=== PATIENT | female | born 1980 | race Caucasian/White ===

== ENCOUNTER 2018-08-19 20:12 | Emergency (ER) | payer BC ==
[~2018-08-19] VITALS: Ht 154.9 cm; Wt 124.7 kg
[2018-08-19] MEDS ORDERED: KETOROLAC TROMETHAMINE 15 MG/ML VIAL ONE (20:51)
[2018-08-19] MEDS ORDERED: ONDANSETRON HCL/PF 4 MG/2 ML VIAL ONE (20:51)
[2018-08-19] MEDS ORDERED: KETOROLAC TROMETHAMINE INJ 30 MG/ML VIAL IV ONE (21:00)
[2018-08-19] MEDS ORDERED: IV NS 0.9% 1,000 ML BAG IV ONE (21:00)
[2018-08-19] MEDS ORDERED: ONDANSETRON HCL/PF 4 MG/2 ML VIAL IVP ONE (21:00)
[2018-08-19 21:06] LABS: BASOPHILS % (AUTO) 0.1 % (0.0-2.0); EOSINOPHILS % (AUTO) 0.8 % (0.0-6.0); HEMATOCRIT 38 % (33-45); HEMOGLOBIN 12.6 g/dL (11.5-14.8); LYMPHOCYTES # (AUTO) 2.2 /CMM (0.8-4.8); LYMPHOCYTES % (AUTO) 23.9 % (20.0-44.0); MEAN CORPUSCULAR HGB CONC 33 g/dl (31.0-36.0); MEAN CORPUSCULAR VOLUME 84 fL (82-100); MONOCYTES # (AUTO) 0.5 /CMM (0.1-1.30); MONOCYTES % (AUTO) 5.7 % (2.0-12.0); NEUTROPHILS # (AUTO) 6.4 /CMM (1.8-8.9); NEUTROPHILS % (AUTO) 69.5 % (43.0-81.0); PLATELET COUNT (AUTO) 294 /CMM (150-450); RED BLOOD CELL COUNT(AUTO) 4.56 MIL/uL (4.0-5.2); WHITE BLOOD COUNT (AUTO) 9.2 K/uL (4.3-11.0)
[2018-08-19 21:18] LABS: ALBUMIN 2.9 g/dL (3.4-5.0); BILIRUBIN,DIRECT 0.1 mg/dL (0.0-0.2); BILIRUBIN,TOTAL 0.4 mg/dL (0.2-1.0); CALCIUM, SERUM 8.7 mg/dL (8.5-10.1); TOTAL PROTEIN, SERUM 5.9 g/dL (6.4-8.2)
[2018-08-19 21:23] LABS: APPEARANCE,URINE Slightly Cloudy (CLEAR); BILIRUBIN,URINE Negative (NEGATIVE); BLOOD, URINE Negative Ery/uL (NEGATIVE); COLOR,URINE Yellow (YELLOW); KETONES,URINE Trace (NEGATIVE); LEUKOCYTE ESTERASE ,URINE Trace (NEGATIVE); NITRITE, URINE Positive (NEGATIVE); PROTEIN,URINE Negative (NEGATIVE); UGLUCOSE Negative (NEGATIVE)
--- NOTE | 2018-08-19 21:36 | NUR ---
BIBSELF C/C RIGHT BACK PAIN CAUSING SOB SINCE AM. PT AAOX4, VSS. DENIES CP, SOB, DIZZINESS @ THIS TIME. PT SEEN & EVAL'D BY DR. TREVIZO. MEDICATED FOR PAIN, PT TRACI WELL. WILL CONT TO MONITOR. PT TO CT VIA [facility].
[2018-08-19 21:37] LABS: BACTERIA,URINE 3+ /HPF (None Seen); RBC,URINE NONE SEEN /HPF (0-2); SQUAMOUS EPITHELIAL CELL,UR Few /HPF (None Seen)
[2018-08-19] MEDS ORDERED: CEFTRIAXONE 1 G in IV D5W 50 ML IV ONE (22:00)
[2018-08-19] MEDS ORDERED: CEFTRIAXONE 1GM BAG (ER ONLY) 50 ML IV ONE (22:02)
--- NOTE | 2018-08-19 22:38 | NUR ---
Patient discharged to home in stable condition. Written and verbal after care instructions given. Patient verbalizes understanding of instruction. IV removed. Catheter intact and site benign. Pressure and 4x4 applied to site. No bleeding noted.
[2018-08-19 22:39] VITALS: BP 132/84
== END 2018-08-19 22:39 | disposition home or self-care (01) ==
LOC: ER 20:18
DX: N39.0 Urinary tract infection, site not specified (principal); R91.1 Solitary pulmonary nodule; Z90.710 Acquired absence of both cervix and uterus; Z88.1 Allergy status to other antibiotic agents
CPT/HCPCS: 36415; 80048-TC; 80076-TC; 81000-TC; 83690-TC; 84703-TC; 85025-TC; 87086-TC; J0696; J1885; J2405; J7030; J7060

== ENCOUNTER 2018-08-27 16:21 | Emergency (ER) | payer BC ==
[~2018-08-27] VITALS: Ht 154.9 cm; Wt 122.5 kg
--- NOTE | 2018-08-27 16:35 | NUR ---
PT BIB SELF C/O LEFT FLANK PAIN X 2 DAYS, PT IS AAOX4, NOT IN RESPIRATORY DISTRESS, V/S STABLE, KEPT RESTED AND COMFORTABLE.
--- NOTE | 2018-08-27 16:35 | NUR ---
URINE SPECIMEN COLLECTEED AND SENT TO LAB.
--- NOTE | 2018-08-27 16:50 | NUR ---
SEEN AND EXAMINED BY AHSAN LOPEZ
[2018-08-27] MEDS ORDERED: HYDROCODONE/APAP 5/325MG 1 EACH TABLET PO ONE (17:00)
[2018-08-27] MEDS ORDERED: KETOROLAC TROMETHAMINE INJ 60 MG/2 ML VIAL IM ONE ×2 (17:00→17:07)
[2018-08-27 17:05] LABS: BASOPHILS % (AUTO) 0.3 % (0.0-2.0); EOSINOPHILS % (AUTO) 0.4 % (0.0-6.0); HEMATOCRIT 38 % (33-45); HEMOGLOBIN 12.8 g/dL (11.5-14.8); LYMPHOCYTES # (AUTO) 2.3 /CMM (0.8-4.8); LYMPHOCYTES % (AUTO) 25.4 % (20.0-44.0); MEAN CORPUSCULAR HGB CONC 33 g/dl (31.0-36.0); MEAN CORPUSCULAR VOLUME 83 fL (82-100); MONOCYTES # (AUTO) 0.5 /CMM (0.1-1.30); MONOCYTES % (AUTO) 5.1 % (2.0-12.0); NEUTROPHILS # (AUTO) 6.2 /CMM (1.8-8.9); NEUTROPHILS % (AUTO) 68.8 % (43.0-81.0); PLATELET COUNT (AUTO) 341 /CMM (150-450)
[2018-08-27] MEDS ORDERED: HYDROCODONE/APAP 5/325MG 1 EACH TABLET ONE (17:08)
--- NOTE | 2018-08-27 17:10 | NUR ---
TORADOL 60 MG AND NORCO 5-325 GIVEN ORDERED.
[2018-08-27 17:12] LABS: CALCIUM, SERUM 8.6 mg/dL (8.5-10.1); CREATININE 0.9 mg/dL (0.6-1.3); POTASSIUM 3.5 mmol/L (3.5-5.1)
[2018-08-27 17:17] LABS: APPEARANCE,URINE Clear (CLEAR); BILIRUBIN,URINE Negative (NEGATIVE); BLOOD, URINE Negative Ery/uL (NEGATIVE); COLOR,URINE Yellow (YELLOW); KETONES,URINE 40 (NEGATIVE); LEUKOCYTE ESTERASE ,URINE Negative (NEGATIVE); NITRITE, URINE Negative (NEGATIVE); PROTEIN,URINE Negative (NEGATIVE); UGLUCOSE Negative (NEGATIVE); UROBILINOGEN,URINE 0.2 EU/dL (0.2)
[2018-08-27 17:18] LABS: ALBUMIN 3.4 g/dL (3.4-5.0); BILIRUBIN,DIRECT 0.1 mg/dL (0.0-0.2); BILIRUBIN,TOTAL 0.7 mg/dL (0.2-1.0); TOTAL PROTEIN, SERUM 6.7 g/dL (6.4-8.2)
[2018-08-27 17:40] LABS: RBC,URINE 0-2 /HPF (0-2); WBC,URINE 0-2 /HPF (0-3)
[2018-08-27 17:41] LABS: BACTERIA,URINE None seen /HPF (None Seen); SQUAMOUS EPITHELIAL CELL,UR Few /HPF (None Seen)
[2018-08-27 17:54] VITALS: BP 123/97
--- NOTE | 2018-08-27 17:54 | NUR ---
Patient discharged to home in stable condition. Written and verbal after care instructions given. Patient verbalizes understanding of instruction.
--- NOTE | 2018-08-28 17:10 | NUR ---
Crispin brown in ED - 08/28/18 at 1748 by BHUPINDER TORADOL 60 MG AND NORCO 5-325 GIVEN ORDERED.
== END 2018-08-27 17:58 | disposition home or self-care (01) ==
LOC: ER 16:25
DX: R10.9 Unspecified abdominal pain (principal); Z90.710 Acquired absence of both cervix and uterus; Z88.1 Allergy status to other antibiotic agents; Z87.442 Personal history of urinary calculi
CPT/HCPCS: 36415; 80048; 80076; 81001; 83690; 84703; 85025; 96372; 99283; A4606; J1885; 81000-TC

== ENCOUNTER 2018-09-26 08:34 | Emergency (ER) | payer BC ==
[~2018-09-26] VITALS: Ht 154.9 cm; Wt 116.1 kg
[2018-09-26] MEDS ORDERED: IPRATROPIUM NEB FS 0.5 MG/2.5 ML AMPUL.NEB ONE (08:51)
[2018-09-26] MEDS ORDERED: ALBUTEROL FS 2.5 MG/3 ML VIAL.NEB ONE (08:51)
--- NOTE | 2018-09-26 08:51 | NUR ---
PT BROUGHT IN FROM HOME WITH C/C OF CONGESTION FLU SWAB DONE RT CALLED FOR BREATHING TREATMENT.
[2018-09-26] MEDS ORDERED: ACETAMINOPHEN ES 500 MG TABLET ONE (08:52)
[2018-09-26] MEDS ORDERED: IPRATROPIUM NEB FS 0.5 MG/2.5 ML AMPUL.NEB NEB ONE (09:00)
[2018-09-26] MEDS ORDERED: ALBUTEROL FS 2.5 MG/3 ML VIAL.NEB NEB ONE (09:00)
[2018-09-26] MEDS ORDERED: ACETAMINOPHEN ES 500 MG TABLET PO ONE (09:00)
[2018-09-26] MEDS ORDERED: OSELTAMIVIR PHOSPHATE 75 MG CAPSULE PO ONE (09:30)
[2018-09-26] MEDS ORDERED: OSELTAMIVIR PHOSPHATE 75 MG CAPSULE ONE (09:36)
--- NOTE | 2018-09-26 10:07 | NUR ---
PTION WILL FOLLOW UP WITH PCP. PT DISCHARGED TO HOME GIVEN ACI AND PRESCRI
[2018-09-26 10:08] VITALS: BP 117/71
== END 2018-09-26 10:08 | disposition home or self-care (01) ==
LOC: ER 08:40
DX: J10.1 Influenza due to other identified influenza virus with other respiratory manifestations (principal); M79.10 Myalgia, unspecified site; R00.0 Tachycardia, unspecified; Z87.442 Personal history of urinary calculi; Z87.440 Personal history of urinary (tract) infections; Z90.710 Acquired absence of both cervix and uterus; Z88.1 Allergy status to other antibiotic agents
CPT/HCPCS: 71045-TC; 87400

== ENCOUNTER 2018-10-30 19:57 | Emergency (ER) | payer BC ==
[~2018-10-30] VITALS: Ht 154.9 cm; Wt 117.0 kg
[2018-10-30 20:07] VITALS: BP 139/86
[2018-10-30] MEDS ORDERED: IBUPROFEN 400 MG TABLET ONE (21:46)
[2018-10-30] MEDS ORDERED: ACETAMINOPHEN ES 500 MG TABLET ONE (21:46)
[2018-10-30] MEDS ORDERED: ACETAMINOPHEN ES 500 MG TABLET PO ONE (22:00)
[2018-10-30] MEDS ORDERED: IBUPROFEN 400 MG TABLET PO ONE (22:00)
== END 2018-10-30 21:52 | disposition home or self-care (01) ==
LOC: ER 20:01
DX: J06.9 Acute upper respiratory infection, unspecified (principal); Z90.710 Acquired absence of both cervix and uterus; Z87.442 Personal history of urinary calculi; Z87.440 Personal history of urinary (tract) infections; Z88.8 Allergy status to other drugs, medicaments and biological substances; Z60.2 Problems related to living alone

== ENCOUNTER 2018-12-03 10:40 | Emergency (ER) | payer BC ==
[~2018-12-03] VITALS: Ht 162.6 cm; Wt 68.0 kg
--- NOTE | 2018-12-03 11:10 | NUR ---
PT PRESENTED TO THE ER WITH A C/O N/V NANNY BABYSITTER. PT AMBULATED TO ER 12 WITH A STEADY GAIT. VSS.
--- NOTE | 2018-12-03 11:20 | NUR ---
Patient discharged to home in stable condition. Written and verbal after care instructions given. Patient verbalizes understanding of instruction AND RX. PT AMBUALTED OUT WITH A STEADY GAIT. VSS.
[2018-12-03 11:30] VITALS: BP 134/87
== END 2018-12-03 11:31 | disposition home or self-care (01) ==
LOC: ER 10:43
DX: A08.4 Viral intestinal infection, unspecified (principal); Z87.442 Personal history of urinary calculi; Z90.710 Acquired absence of both cervix and uterus; Z88.1 Allergy status to other antibiotic agents; Z60.2 Problems related to living alone

== ENCOUNTER 2019-03-07 13:28 | Emergency (ER) | payer BC ==
[~2019-03-07] VITALS: Ht 165.1 cm; Wt 68.0 kg
[2019-03-07] MEDS ORDERED: KETOROLAC TROMETHAMINE INJ 60 MG/2 ML VIAL IM ONE ×2 (14:00→14:12)
[2019-03-07] MEDS ORDERED: CYCLOBENZAPRINE 10 MG TABLET PO ONE (14:00)
[2019-03-07] MEDS ORDERED: DEXAMETHASONE SOD PHOSPHATE 4 MG/ML VIAL IM ONE (14:00)
[2019-03-07] MEDS ORDERED: DEXAMETHASONE SOD PHOSPHATE 10 MG/ML VIAL ONE (14:12)
[2019-03-07] MEDS ORDERED: CYCLOBENZAPRINE 10 MG TABLET ONE (14:13)
[2019-03-07 14:43] VITALS: BP 136/74
--- NOTE | 2019-03-07 14:57 | NUR ---
for discharge Patient discharged to home in stable condition. Written and verbal after care instructions given. Patient verbalizes understanding of instruction.
== END 2019-03-07 14:57 | disposition home or self-care (01) ==
LOC: ER 13:35
DX: M54.5 Low back pain (principal); G89.29 Other chronic pain; Z87.442 Personal history of urinary calculi; Z90.710 Acquired absence of both cervix and uterus; Z88.1 Allergy status to other antibiotic agents; Z87.440 Personal history of urinary (tract) infections; Z60.2 Problems related to living alone
CPT/HCPCS: 96372 ×2; 99283; J1100; J1885

== ENCOUNTER 2019-03-19 09:17 | Emergency (ER) | payer BC | END 2019-03-19 10:04 | disposition home or self-care (01) | DX: H66.92 Otitis media, unspecified, left ear (principal); Z90.710 Acquired absence of both cervix and uterus; Z90.49 Acquired absence of other specified parts of digestive tract; Z87.442 Personal history of urinary calculi; Z87.440 Personal history of urinary (tract) infections; Z88.1 Allergy status to other antibiotic agents; Z60.2 Problems related to living alone ==

== ENCOUNTER 2019-04-19 09:45 | Emergency (ER) | payer BC ==
[~2019-04-19] VITALS: Ht 154.9 cm; Wt 117.0 kg
[2019-04-19 09:49] VITALS: BP 130/82
[2019-04-19] MEDS ORDERED: ACETAMINOPHEN ES 500 MG TABLET ONE (09:57)
[2019-04-19] MEDS ORDERED: ACETAMINOPHEN ES 500 MG TABLET PO ONE (10:00)
--- NOTE | 2019-04-19 10:05 | NUR ---
Patient discharged to home in stable condition. Written and verbal after care instructions given. Patient verbalizes understanding of instruction.
== END 2019-04-19 10:05 | disposition home or self-care (01) ==
LOC: ER 09:51
DX: R23.3 Spontaneous ecchymoses (principal); R21 Rash and other nonspecific skin eruption; Z87.440 Personal history of urinary (tract) infections; Z87.442 Personal history of urinary calculi; Z90.710 Acquired absence of both cervix and uterus; Z88.1 Allergy status to other antibiotic agents; Z60.2 Problems related to living alone

== ENCOUNTER 2019-05-31 14:02 | Emergency (ER) | payer BC ==
[~2019-05-31] VITALS: Ht 177.8 cm; Wt 113.4 kg
--- NOTE | 2019-05-31 14:17 | NUR ---
URINE SPECIMEN COLLECTED AND SENT TO LAB.
--- NOTE | 2019-05-31 14:21 | NUR ---
PT BIB SELF C/O LOWER ABDOMINAL PAIN AND DYSURIA FOR 3 WEEKS, PT IS AAOX4, NOT IN RESPIRATORY DISTRESS, HOOKED TO MONITOR, KEPT RESTED AND COMFORTABLE, WILL CONTINUE TO MONITOR.
--- NOTE | 2019-05-31 14:22 | NUR ---
AT BEDSIDE FOR EVAL.
--- NOTE | 2019-05-31 14:43 | NUR ---
PT IV LINE ESTABLISHED, BLOOD DRAWN AND SENT TO LAB.
[2019-05-31 14:44] LABS: APPEARANCE,URINE Clear (CLEAR); BILIRUBIN,URINE Negative (NEGATIVE); BLOOD, URINE Negative Ery/uL (NEGATIVE); COLOR,URINE Yellow (YELLOW); KETONES,URINE Negative (NEGATIVE); LEUKOCYTE ESTERASE ,URINE Negative (NEGATIVE); NITRITE, URINE Negative (NEGATIVE); PROTEIN,URINE Negative (NEGATIVE); UGLUCOSE Negative (NEGATIVE); UROBILINOGEN,URINE 0.2 EU/dL (0.2)
[2019-05-31] MEDS ORDERED: MORPHINE SULFATE INJ 2 MG/ML DISP.SYRIN ONE (14:44)
[2019-05-31] MEDS ORDERED: ONDANSETRON HCL/PF 4 MG/2 ML VIAL ONE (14:44)
[2019-05-31 14:47] LABS: BASOPHILS % (AUTO) 0.3 % (0.0-2.0); EOSINOPHILS % (AUTO) 1.2 % (0.0-6.0); HEMATOCRIT 37 % (33-45); HEMOGLOBIN 12.3 g/dL (11.5-14.8); LYMPHOCYTES % (AUTO) 24.7 % (20.0-44.0); MEAN CORPUSCULAR HGB CONC 34 g/dl (31.0-36.0); MEAN CORPUSCULAR VOLUME 82 fL (82-100); MONOCYTES # (AUTO) 0.4 /CMM (0.1-1.30); MONOCYTES % (AUTO) 5.1 % (2.0-12.0); NEUTROPHILS # (AUTO) 5.6 /CMM (1.8-8.9); NEUTROPHILS % (AUTO) 68.7 % (43.0-81.0); PLATELET COUNT (AUTO) 312 /CMM (150-450); RED BLOOD CELL COUNT(AUTO) 4.48 MIL/uL (4.0-5.2); WHITE BLOOD COUNT (AUTO) 8.2 K/uL (4.3-11.0)
[2019-05-31] MEDS ORDERED: MORPHINE SULFATE INJ 2 MG/ML DISP.SYRIN IV ONE (15:00)
[2019-05-31] MEDS ORDERED: ONDANSETRON HCL/PF 4 MG/2 ML VIAL IVP ONE (15:00)
[2019-05-31] MEDS ORDERED: IV NS 0.9% 1,000 ML BAG IV ONE (15:00)
[2019-05-31 15:03] LABS: ALBUMIN 3.4 g/dL (3.4-5.0); BILIRUBIN,DIRECT 0.1 mg/dL (0.0-0.2); BILIRUBIN,TOTAL 0.5 mg/dL (0.2-1.0); CREATININE 0.8 mg/dL (0.6-1.3); POTASSIUM 3.2 mmol/L (3.5-5.1); TOTAL PROTEIN, SERUM 6.8 g/dL (6.4-8.2)
[2019-05-31 15:12] LABS: CALCIUM, SERUM 8.7 mg/dL (8.5-10.1)
--- NOTE | 2019-05-31 16:16 | NUR ---
PT IS WHEELED TO CT SCAN VIA [facility].
[2019-05-31] MEDS ORDERED: IOHEXOL-300 100 ML VIAL IV ONE (17:14)
--- NOTE | 2019-05-31 17:40 | NUR ---
TECH AT BEDSIDE FOR US.
[2019-05-31] MEDS ORDERED: KETOROLAC TROMETHAMINE INJ 30 MG/ML VIAL ONE (18:14)
[2019-05-31] MEDS ORDERED: KETOROLAC TROMETHAMINE INJ 30 MG/ML VIAL IV ONE (18:30)
--- NOTE | 2019-05-31 18:51 | NUR ---
CALLED VASU JAMIL, LEFT VOICEMAIL.
--- NOTE | 2019-05-31 19:07 | NUR ---
REPORT GIVEN TO JHONY VALDEZ FOR KRISTINA.
--- NOTE | 2019-05-31 19:13 | NUR ---
DR. OCAMPO AT THE BED SIDE
--- NOTE | 2019-05-31 19:14 | NUR ---
CALL NICHELLE FOR UPDATES [phone]
[2019-05-31] MEDS ORDERED: POTASSIUM CHLORIDE 20 MEQ TAB.PRT.SR PO ONE ×2 (19:30→19:44)
[2019-05-31 19:48] VITALS: BP 117/77
--- NOTE | 2019-05-31 19:48 | NUR ---
IV removed. Catheter intact and site benign. Pressure and 4x4 applied to site. No bleeding noted.Patient discharged to home in stable condition. Rx and Written and verbal after care instructions given. Patient verbalizes understanding of instruction.
== END 2019-05-31 19:49 | disposition home or self-care (01) ==
LOC: ER 14:04
DX: R91.1 Solitary pulmonary nodule (principal); R19.09 Other intra-abdominal and pelvic swelling, mass and lump; N83.8 Other noninflammatory disorders of ovary, fallopian tube and broad ligament; E87.6 Hypokalemia; F10.10 Alcohol abuse, uncomplicated; E66.9 Obesity, unspecified; Y90.9 Presence of alcohol in blood, level not specified; Z68.35 Body mass index [BMI] 35.0-35.9, adult; Z90.49 Acquired absence of other specified parts of digestive tract; Z90.710 Acquired absence of both cervix and uterus; Z87.442 Personal history of urinary calculi; Z87.440 Personal history of urinary (tract) infections; Z88.1 Allergy status to other antibiotic agents; Z60.2 Problems related to living alone
CPT/HCPCS: 36415; 71260; 74176; 76856; 80048; 80076; 81001; 83690; 84703; 85025; 96374; 96375; 99284; J1885; J2270; J2405; J7030; Q9967; 81000-TC

== ENCOUNTER 2019-08-16 07:03 | Emergency (ER) | payer BC ==
[~2019-08-16] VITALS: Ht 154.9 cm; Wt 117.9 kg
--- NOTE | 2019-08-16 07:15 | NUR ---
c/o RLQ abd pain since last night 01/27 ps, -N/V, -diarrhea. Patient a/ox4, breathing even and unlabored, no sob noted, MD at bedside for eval.
--- NOTE | 2019-08-16 07:20 | NUR ---
IV line established on RAC g20, blood drawn, urine sample sent to lab.
[2019-08-16] MEDS ORDERED: ONDANSETRON HCL/PF 4 MG/2 ML VIAL ONE (07:29)
[2019-08-16] MEDS ORDERED: MORPHINE SULFATE INJ 4 MG/ML DISP.SYRIN ONE (07:29)
[2019-08-16] MEDS ORDERED: ONDANSETRON HCL/PF 4 MG/2 ML VIAL IVP ONE (07:30)
[2019-08-16] MEDS ORDERED: IV NS 0.9% 500 ML BAG IV ONE (07:30)
[2019-08-16] MEDS ORDERED: MORPHINE SULFATE INJ 2 MG/ML DISP.SYRIN IV ONE (07:30)
--- NOTE | 2019-08-16 07:30 | NUR ---
Patient taken to CT
[2019-08-16 07:33] LABS: APPEARANCE,URINE Clear (CLEAR); BILIRUBIN,URINE Negative (NEGATIVE); BLOOD, URINE Negative Ery/uL (NEGATIVE); COLOR,URINE Yellow (YELLOW); KETONES,URINE Negative (NEGATIVE); LEUKOCYTE ESTERASE ,URINE Negative (NEGATIVE); NITRITE, URINE Negative (NEGATIVE); PH,URINE 7.5 (5.0-8.0); PROTEIN,URINE Negative (NEGATIVE); UGLUCOSE Negative (NEGATIVE); UROBILINOGEN,URINE 0.2 EU/dL (0.2)
[2019-08-16 07:33] LABS: BASOPHILS % (AUTO) 0.3 % (0.0-2.0); EOSINOPHILS % (AUTO) 0.9 % (0.0-6.0); HEMATOCRIT 35 % (33-45); HEMOGLOBIN 11.6 g/dL (11.5-14.8); LYMPHOCYTES # (AUTO) 1.6 /CMM (0.8-4.8); LYMPHOCYTES % (AUTO) 22.9 % (20.0-44.0); MEAN CORPUSCULAR HGB CONC 33 g/dl (31.0-36.0); MEAN CORPUSCULAR VOLUME 82 fL (82-100); MONOCYTES # (AUTO) 0.4 /CMM (0.1-1.30); MONOCYTES % (AUTO) 5.1 % (2.0-12.0); NEUTROPHILS % (AUTO) 70.8 % (43.0-81.0); PLATELET COUNT (AUTO) 306 /CMM (150-450); RED BLOOD CELL COUNT(AUTO) 4.28 MIL/uL (4.0-5.2)
[2019-08-16 07:39] LABS: CALCIUM, SERUM 8.4 mg/dL (8.5-10.1); CREATININE 0.9 mg/dL (0.6-1.3); POTASSIUM 3.9 mmol/L (3.5-5.1)
[2019-08-16 07:45] LABS: ALBUMIN 3.3 g/dL (3.4-5.0); BILIRUBIN,DIRECT 0.1 mg/dL (0.0-0.2); BILIRUBIN,TOTAL 0.5 mg/dL (0.2-1.0); TOTAL PROTEIN, SERUM 6.7 g/dL (6.4-8.2)
--- NOTE | 2019-08-16 08:48 | NUR ---
PATIENT FEELS BETTER, DENIES PAIN AT THIS TIME. IV removed. Catheter intact and site benign. Pressure and 4x4 applied to site. No bleeding noted.Patient discharged to home in stable condition. Written and verbal after care instructions given. Patient verbalizes understanding of instruction.
[2019-08-16 08:52] VITALS: BP 100/68
== END 2019-08-16 08:53 | disposition home or self-care (01) ==
LOC: ER 07:03
DX: R10.31 Right lower quadrant pain (principal); Z87.442 Personal history of urinary calculi; Z90.49 Acquired absence of other specified parts of digestive tract; Z90.710 Acquired absence of both cervix and uterus; Z88.1 Allergy status to other antibiotic agents; Z60.2 Problems related to living alone
CPT/HCPCS: 36415; 74176; 80048; 80076; 81001; 83690; 85025; 96374; 96375; 99284; J2270; J2405; J7040; 81000-TC

== ENCOUNTER 2019-08-30 05:49 | Emergency (ER) | payer BC ==
[~2019-08-30] VITALS: Ht 154.9 cm; Wt 113.4 kg
--- NOTE | 2019-08-30 06:04 | NUR ---
BIBSELF C/O HEADACHE X1 DAY. +BODY ACHE/+CHILLS. -NAUSEA/-VOMITTING -DIZZINESS. 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 ALSO C/O COUGH
[2019-08-30 06:30] VITALS: BP 129/69
--- NOTE | 2019-08-30 06:30 | NUR ---
Patient discharged to home in stable condition. rx and Written and verbal after care instructions given. Patient verbalizes understanding of instruction.
== END 2019-08-30 06:31 | disposition home or self-care (01) ==
LOC: ER 05:51
DX: J11.1 Influenza due to unidentified influenza virus with other respiratory manifestations (principal); F10.10 Alcohol abuse, uncomplicated; Y90.9 Presence of alcohol in blood, level not specified; Z87.442 Personal history of urinary calculi; Z87.440 Personal history of urinary (tract) infections; Z90.710 Acquired absence of both cervix and uterus; Z98.890 Other specified postprocedural states; Z88.1 Allergy status to other antibiotic agents; Z60.2 Problems related to living alone

== ENCOUNTER 2019-09-09 09:31 | Emergency (ER) | payer BC ==
[~2019-09-09] VITALS: Ht 160 cm; Wt 108.9 kg
[2019-09-09 09:38] VITALS: BP 116/61
--- NOTE | 2019-09-09 09:50 | NUR ---
SEEN AND EXAMINED BY .
[2019-09-09] MEDS ORDERED: HYDROCODONE/APAP 5/325MG 1 EACH TABLET ONE (09:58)
[2019-09-09] MEDS: HYDROCODONE/APAP 5/325MG 1 EACH TABLET PO ONE (10:01)
--- NOTE | 2019-09-09 10:21 | NUR ---
PT IS WHEELED TO RADIOLOGY FOR XRAY.
--- NOTE | 2019-09-09 11:15 | NUR ---
Patient discharged to home in stable condition. Written and verbal after care instructions given. Patient verbalizes understanding of instruction.
== END 2019-09-09 11:16 | disposition home or self-care (01) ==
LOC: ER 09:37
DX: M54.6 Pain in thoracic spine (principal); R07.89 Other chest pain; F10.10 Alcohol abuse, uncomplicated; Y90.9 Presence of alcohol in blood, level not specified; Z87.442 Personal history of urinary calculi; Z87.440 Personal history of urinary (tract) infections; Z90.710 Acquired absence of both cervix and uterus; Z98.890 Other specified postprocedural states; Z88.1 Allergy status to other antibiotic agents; Z60.2 Problems related to living alone
CPT/HCPCS: 71045-TC; 72074-TC

== ENCOUNTER 2020-09-13 17:05 | Emergency (ER) | payer BC ==
[~2020-09-13] VITALS: Ht 154.9 cm; Wt 117.9 kg
[2020-09-13] MEDS ORDERED: LIDOCAINE 1%-EPI 1:100,000 20 ML VIAL ONE (17:54)
--- NOTE | 2020-09-13 17:58 | NUR ---
CHAPERONED TARIK ALVARADO DURING I&D AT [facility]
[2020-09-13] MEDS ORDERED: CEPH500T PO (18:13)
[2020-09-13] MEDS ORDERED: SULF1TAB48 PO (18:13)
[2020-09-13] MEDS ORDERED: SULFAMETH/TRIMETH 800/160 MG 1 UDTAB TABLET ONE (18:18)
[2020-09-13] MEDS ORDERED: CEPHALEXIN MONOHYDRATE 500 MG CAPSULE PO ONE ×2 (18:18→18:30)
[2020-09-13 18:28] VITALS: BP 132/80
[2020-09-13] MEDS ORDERED: SULFAMETH/TRIMETH 800/160 MG 1 UDTAB TABLET PO ONE (18:30)
== END 2020-09-13 18:28 | disposition home or self-care (01) ==
LOC: ER 17:10
DX: L73.9 Follicular disorder, unspecified (principal); L02.31 Cutaneous abscess of buttock; Z98.890 Other specified postprocedural states; Z88.1 Allergy status to other antibiotic agents; Z60.2 Problems related to living alone; Z79.899 Other long term (current) drug therapy
CPT/HCPCS: 10060; 99283; A6407; J3490

== ENCOUNTER 2020-09-15 17:55 | Emergency (ER) | payer BC ==
[~2020-09-15] VITALS: Ht 154.9 cm; Wt 117.9 kg
[~2020-09-15 17:55] MED LIST: CEPH500T PO; SULF1TAB48 PO
[2020-09-15 18:01] VITALS: BP 131/72
== END 2020-09-15 18:28 | disposition home or self-care (01) ==
LOC: ER 17:57
DX: L02.31 Cutaneous abscess of buttock (principal); L73.8 Other specified follicular disorders; F10.10 Alcohol abuse, uncomplicated; E66.01 Morbid (severe) obesity due to excess calories; Y90.9 Presence of alcohol in blood, level not specified; Z68.42 Body mass index [BMI] 45.0-49.9, adult; Z87.440 Personal history of urinary (tract) infections; Z87.442 Personal history of urinary calculi; Z90.710 Acquired absence of both cervix and uterus; Z98.890 Other specified postprocedural states; Z88.1 Allergy status to other antibiotic agents; Z60.2 Problems related to living alone; Z79.899 Other long term (current) drug therapy

== ENCOUNTER 2021-10-14 11:33 | Emergency (ER) | payer BC ==
[~2021-10-14] VITALS: Ht 154.9 cm; Wt 115.7 kg
--- NOTE | 2021-10-14 11:45 | NUR ---
BIB SELF C/O FLU LIKE SYMPTOMS X 2 WEEKS."SORE THROAT, COUGH AND CONGESTION.PLACED COMFORTABLY IN BED. VITALS CHECKED. PATIENT IS ALERT, ORIENTED X4.
--- NOTE | 2021-10-14 11:52 | NUR ---
CXR DONE AT BEDSIDE
--- NOTE | 2021-10-14 12:00 | NUR ---
SEEN BY ER WITH ORDERS TO BE CARRIED OUT
[2021-10-14] MEDS ORDERED: DOXY100C2 PO (12:08)
--- NOTE | 2021-10-14 12:15 | NUR ---
Patient discharged to home in stable condition. Written and verbal after care instructions given. Patient verbalizes understanding of instruction.
[2021-10-14 12:16] VITALS: BP 102/61
== END 2021-10-14 12:17 | disposition home or self-care (01) ==
LOC: ER 11:35
DX: J18.9 Pneumonia, unspecified organism (principal); Z98.890 Other specified postprocedural states; Z88.1 Allergy status to other antibiotic agents; Z60.2 Problems related to living alone
CPT/HCPCS: 71045-TC

== ENCOUNTER 2022-03-29 10:56 | Emergency (ER) | payer BC ==
[~2022-03-29] VITALS: Ht 154.9 cm; Wt 117.9 kg
[~2022-03-29 10:56] MED LIST changes: +DOXY100C2 PO
--- NOTE | 2022-03-29 12:19 | NUR ---
URINE COLLECTED AND SENT TO LAB
[2022-03-29 12:39] LABS: BASOPHILS % (AUTO) 0.2 % (0.0-2.0); EOSINOPHILS % (AUTO) 1.1 % (0.0-6.0); HEMATOCRIT 34 % (33-45); LYMPHOCYTES # (AUTO) 1.6 K/uL (0.8-4.8); LYMPHOCYTES % (AUTO) 21.6 % (20.0-44.0); MEAN CORPUSCULAR HGB CONC 32 g/dl (31.0-36.0); MEAN CORPUSCULAR VOLUME 78 fL (82-100); MONOCYTES # (AUTO) 0.4 K/uL (0.1-1.30); MONOCYTES % (AUTO) 5.1 % (2.0-12.0); NEUTROPHILS # (AUTO) 5.3 K/uL (1.8-8.9); PLATELET COUNT (AUTO) 288 K/uL (150-450); WHITE BLOOD COUNT (AUTO) 7.4 K/uL (4.3-11.0)
[2022-03-29 12:50] LABS: CALCIUM, SERUM 8.5 mg/dL (8.5-10.1); CARBON DIOXIDE 29 mmol/L (21-32); CHLORIDE 105 mmol/L (98-107); CREATININE 0.7 mg/dL (0.6-1.3); GLUCOSE 118 mg/dL (74-106); POTASSIUM 4.1 mmol/L (3.5-5.1); SODIUM SERUM 140 mmol/L (136-145); UREA NITROGEN, BLOOD 15 mg/dL (7-18)
[2022-03-29 13:04] LABS: ALANINE AMINOTRANSFERASE 25 U/L (12-78); ALBUMIN 3.2 g/dL (3.4-5.0); ALKALINE PHOSPHATASE 79 U/L (46-116); ASPARTATE AMINOTRANSFERASE 12 U/L (15-37); BILIRUBIN,DIRECT 0.1 mg/dL (0.0-0.2); BILIRUBIN,TOTAL 0.4 mg/dL (0.2-1.0); TOTAL PROTEIN, SERUM 6.9 g/dL (6.4-8.2)
[2022-03-29] MEDS ORDERED: FUROSEMIDE 20 MG/2 ML VIAL IV ONE (13:30)
[2022-03-29] MEDS ORDERED: FUROSEMIDE 20 MG/2 ML VIAL ONE (13:32)
--- NOTE | 2022-03-29 14:01 | NUR ---
PT PROVIDED W/ CRANBERRY JUICE, TRACI WELL.
[2022-03-29 14:39] VITALS: BP 125/75
== END 2022-03-29 14:40 | disposition home or self-care (01) ==
LOC: ER 10:57
DX: R60.0 Localized edema (principal); Z87.440 Personal history of urinary (tract) infections; Z87.442 Personal history of urinary calculi; Z90.710 Acquired absence of both cervix and uterus; Z90.49 Acquired absence of other specified parts of digestive tract; Z88.8 Allergy status to other drugs, medicaments and biological substances; Z60.2 Problems related to living alone; Z79.899 Other long term (current) drug therapy
CPT/HCPCS: 99285; 96374; 71045; 93005; 85025; 80048; 80076; 36415; 84484; 83880; J1940

== ENCOUNTER 2022-06-07 09:11 | Emergency (ER) | payer BC ==
[~2022-06-07] VITALS: Ht 157.5 cm; Wt 115.7 kg
[2022-06-07 09:21] VITALS: BP 176/77
== END 2022-06-07 10:12 | disposition home or self-care (01) ==
LOC: ER 09:19
DX: J01.10 Acute frontal sinusitis, unspecified (principal); R05.9 Cough, unspecified; Z20.822 Contact with and (suspected) exposure to COVID-19; Z90.710 Acquired absence of both cervix and uterus; Z87.442 Personal history of urinary calculi; Z87.440 Personal history of urinary (tract) infections
CPT/HCPCS: 99283; 87426; 87804; C9803

== ENCOUNTER 2022-09-23 18:25 | Emergency (ER) | payer BC ==
[~2022-09-23] VITALS: Ht 154.9 cm; Wt 117.9 kg
--- NOTE | 2022-09-23 19:21 | NUR ---
Patient came into ER with a headache. Pain 7/10. She states she has had a headache on and off for the past three weeks. Headache radiates from L side to middle of head. He left cheek was numb today from the headache. Breathing is unlabored, side rails up, she is connected to bedside monitor. Says she was taking herbal supp Isaak-E
[2022-09-23] MEDS ORDERED: diphenhydrAMINE HCL 50 MG/ML VIAL IV ONE (19:30)
[2022-09-23] MEDS ORDERED: SUMATRIPTAN SUCCINATE 6 MG/0.5 ML VIAL SQ ONE (19:30)
[2022-09-23] MEDS ORDERED: diphenhydrAMINE HCL 50 MG/ML VIAL ONE (19:43)
[2022-09-23] MEDS ORDERED: SUMATRIPTAN SUCCINATE 25 MG TABLET ONE (19:44)
[2022-09-23 19:59] LABS: BASOPHILS % (AUTO) 0.2 % (0.0-2.0); EOSINOPHILS % (AUTO) 0.9 % (0.0-6.0); HEMATOCRIT 36 % (33-45); HEMOGLOBIN 11.5 g/dL (11.5-14.8); LYMPHOCYTES # (AUTO) 2.3 K/uL (0.8-4.8); LYMPHOCYTES % (AUTO) 24.3 % (20.0-44.0); MEAN CORPUSCULAR HGB CONC 32 g/dl (31.0-36.0); MEAN CORPUSCULAR VOLUME 78 fL (82-100); MONOCYTES # (AUTO) 0.5 K/uL (0.1-1.30); MONOCYTES % (AUTO) 4.8 % (2.0-12.0); NEUTROPHILS # (AUTO) 6.6 K/uL (1.8-8.9); NEUTROPHILS % (AUTO) 69.8 % (43.0-81.0); PLATELET COUNT (AUTO) 310 K/uL (150-450); WHITE BLOOD COUNT (AUTO) 9.5 K/uL (4.3-11.0)
--- NOTE | 2022-09-23 20:16 | NUR ---
CT DONE, PT BACK IN BED.
[2022-09-23 20:22] VITALS: BP 157/81
[2022-09-23 20:22] LABS: CALCIUM, SERUM 8.9 mg/dL (8.5-10.1); CREATININE 0.9 mg/dL (0.6-1.3); POTASSIUM 4.3 mmol/L (3.5-5.1)
[2022-09-23] MEDS ORDERED: HYDROCODONE/APAP 5/325MG TABLET ONE (20:51)
[2022-09-23] MEDS ORDERED: HYDROCODONE/APAP 5/325MG TABLET PO ONE (21:00)
[2022-09-23] MEDS ORDERED: SUMA100T16 PO (21:24)
--- NOTE | 2022-09-23 21:37 | NUR ---
IV DARLENE REMOVED
--- NOTE | 2022-09-23 21:37 | NUR ---
Patient discharged to home in stable condition. Written and verbal after care instructions given. Patient verbalizes understanding of instruction.
== END 2022-09-23 21:39 | disposition home or self-care (01) ==
LOC: ER 18:25
DX: R51.9 Headache, unspecified (principal); Z87.440 Personal history of urinary (tract) infections; Z87.442 Personal history of urinary calculi; Z90.710 Acquired absence of both cervix and uterus; Z88.8 Allergy status to other drugs, medicaments and biological substances; Z60.2 Problems related to living alone; Z79.899 Other long term (current) drug therapy
CPT/HCPCS: 99285; 96374; 70450; 85025; 80048; 36415; 85730; 96372; J1200

== ENCOUNTER 2023-05-21 11:40 | Emergency (ER) | payer BC ==
[~2023-05-21] VITALS: Ht 154.9 cm; Wt 113.4 kg
[~2023-05-21 11:40] MED LIST changes: +SUMA100T16 PO
[2023-05-21] MEDS ORDERED: MECLIZINE HCL 25 MG TABLET PO ONE (12:30)
[2023-05-21] MEDS ORDERED: MECLIZINE HCL 25 MG TABLET ONE (12:31)
[2023-05-21 12:53] LABS: BASOPHILS % (AUTO) 0.5 % (0.0-2.0); EOSINOPHILS # (AUTO) 0.1 K/uL (0.0-0.7); EOSINOPHILS % (AUTO) 1.1 % (0.0-6.0); HEMATOCRIT 35 % (33-45); HEMOGLOBIN 11.2 g/dL (11.5-14.8); LYMPHOCYTES # (AUTO) 2.1 K/uL (0.8-4.8); LYMPHOCYTES % (AUTO) 25.2 % (20.0-44.0); MEAN CORPUSCULAR HEMOGLOBIN 25 PG (26.0-33.0); MEAN CORPUSCULAR HGB CONC 32 g/dl (31.0-36.0); MEAN CORPUSCULAR VOLUME 77 fL (82-100); MONOCYTES # (AUTO) 0.5 K/uL (0.1-1.30); MONOCYTES % (AUTO) 5.9 % (2.0-12.0); NEUTROPHILS # (AUTO) 5.5 K/uL (1.8-8.9); NEUTROPHILS % (AUTO) 67.3 % (43.0-81.0); PLATELET COUNT (AUTO) 323 K/uL (150-450); RED BLOOD CELL COUNT(AUTO) 4.56 MIL/uL (4.0-5.2); RED CELL DISTRIBUTION WIDTH 17.8 % (11.5-15.0); WHITE BLOOD COUNT (AUTO) 8.2 K/uL (4.3-11.0)
[2023-05-21 13:03] LABS: CALCIUM, SERUM 8.7 mg/dL (8.5-10.1); CARBON DIOXIDE 28 mmol/L (21-32); CHLORIDE 105 mmol/L (98-107); CREATININE 0.8 mg/dL (0.6-1.3); GLUCOSE 110 mg/dL (74-106); SODIUM SERUM 140 mmol/L (136-145); UREA NITROGEN, BLOOD 15 mg/dL (7-18)
[2023-05-21 13:15] LABS: ALANINE AMINOTRANSFERASE 20 U/L (12-78); ALBUMIN 3.6 g/dL (3.4-5.0); ALKALINE PHOSPHATASE 84 U/L (46-116); ASPARTATE AMINOTRANSFERASE 9 U/L (15-37); BILIRUBIN,DIRECT 0.1 mg/dL (0.0-0.2); BILIRUBIN,TOTAL 0.4 mg/dL (0.2-1.0); NT-PRO BNP 28 pg/mL (0-125); TOTAL PROTEIN, SERUM 6.7 g/dL (6.4-8.2)
[2023-05-21] MEDS ORDERED: MECL-159 PO (13:38)
[2023-05-21 14:29] VITALS: BP 133/95; TEMP 98.1; O2SAT 99
== END 2023-05-21 14:29 | disposition home or self-care (01) ==
LOC: ER 11:46
DX: R42 Dizziness and giddiness (principal); G43.909 Migraine, unspecified, not intractable, without status migrainosus; Z98.890 Other specified postprocedural states; Z60.2 Problems related to living alone; Z79.899 Other long term (current) drug therapy
CPT/HCPCS: 99285; 71045; 93005; 85025; 80048; 80076; 36415; 84484; 83880; 82962; J8597

== ENCOUNTER 2023-08-07 15:52 | Emergency (ER) | payer BC ==
[~2023-08-07] VITALS: Ht 154.9 cm; Wt 113.4 kg
[~2023-08-07 15:52] MED LIST changes: +MECL-159 PO
[2023-08-07 16:29] VITALS: TEMP 98.8
[2023-08-07] MEDS ORDERED: ALBUTEROL FS 2.5 MG/3 ML VIAL.NEB ONE (17:56)
[2023-08-07] MEDS ORDERED: IPRATROPIUM NEB FS 0.5 MG/2.5 ML AMPUL.NEB ONE (17:56)
[2023-08-07] MEDS ORDERED: predniSONE 20 MG TABLET ONE (17:57)
[2023-08-07] MEDS: predniSONE 20 MG TABLET PO ONE (18:00)
[2023-08-07] MEDS: IPRATROPIUM NEB FS 0.5 MG/2.5 ML AMPUL.NEB NEB ONE (18:02)
[2023-08-07] MEDS: ALBUTEROL FS 2.5 MG/3 ML VIAL.NEB NEB ONE (18:02)
[2023-08-07 18:03] VITALS: O2SAT 98
[2023-08-07] MEDS ORDERED: AZIT250T PO (19:15)
[2023-08-07] MEDS ORDERED: PRED50TA PO (19:15)
[2023-08-07] MEDS ORDERED: ALBU8.5H8 INH (19:15)
[2023-08-07 19:40] VITALS: BP 141/77; O2SAT 99
== END 2023-08-07 19:40 | disposition home or self-care (01) ==
LOC: ER 15:58
DX: J20.9 Acute bronchitis, unspecified (principal); G43.909 Migraine, unspecified, not intractable, without status migrainosus; Z79.899 Other long term (current) drug therapy; Z90.49 Acquired absence of other specified parts of digestive tract; Z20.822 Contact with and (suspected) exposure to COVID-19; Z60.2 Problems related to living alone; Z88.1 Allergy status to other antibiotic agents
CPT/HCPCS: 99285; 71045; 87426; 93005; 87804 ×2; 94640; J7512

== ENCOUNTER 2023-09-15 08:08 | Emergency (ER) | payer BC ==
[~2023-09-15] VITALS: Ht 154.9 cm; Wt 117.0 kg
[~2023-09-15 08:08] MED LIST changes: +ALBU8.5H8 INH; +AZIT250T PO; +PRED50TA PO
[2023-09-15] MEDS ORDERED: ALBU8.5H8 INH (08:32)
[2023-09-15] MEDS ORDERED: AZIT250T PO (08:32)
[2023-09-15] MEDS ORDERED: PRED50TA PO (08:32)
[2023-09-15] MEDS ORDERED: ALBUTEROL FS 2.5 MG/3 ML VIAL.NEB ONE (10:37)
[2023-09-15] MEDS ORDERED: IPRATROPIUM NEB FS 0.5 MG/2.5 ML AMPUL.NEB ONE (10:37)
[2023-09-15 10:40] VITALS: O2SAT 99
[2023-09-15] MEDS: IPRATROPIUM NEB FS 0.5 MG/2.5 ML AMPUL.NEB NEB ONE (10:40)
[2023-09-15] MEDS: ALBUTEROL FS 2.5 MG/3 ML VIAL.NEB NEB ONE (10:40)
[2023-09-15 10:55] VITALS: O2SAT 100
[2023-09-15 10:56] VITALS: O2SAT 100
[2023-09-15 10:58] VITALS: BP 112/58; TEMP 98.3
[2023-09-15 11:06] VITALS: O2SAT 100
== END 2023-09-15 10:58 | disposition home or self-care (01) ==
LOC: ER 08:10
DX: J20.9 Acute bronchitis, unspecified (principal); J06.9 Acute upper respiratory infection, unspecified; R05.9 Cough, unspecified; R09.81 Nasal congestion; G43.909 Migraine, unspecified, not intractable, without status migrainosus; Z87.440 Personal history of urinary (tract) infections; Z87.442 Personal history of urinary calculi; Z90.710 Acquired absence of both cervix and uterus; Z88.8 Allergy status to other drugs, medicaments and biological substances; Z60.2 Problems related to living alone; Z20.822 Contact with and (suspected) exposure to COVID-19
CPT/HCPCS: 71045-TC

== ENCOUNTER 2023-11-02 23:04 | Emergency (ER) | payer BC ==
[~2023-11-02] VITALS: Ht 157.5 cm; Wt 116.1 kg
[2023-11-02 23:14] VITALS: BP 137/88; TEMP 98.2; O2SAT 99
[2023-11-02] MEDS ORDERED: METO-295 PO (23:25)
[2023-11-02] MEDS ORDERED: METOCLOPRAMIDE HCL 10 MG TABLET ONE (23:41)
[2023-11-02] MEDS ORDERED: IBUPROFEN 400 MG TABLET ONE (23:41)
[2023-11-02] MEDS ORDERED: diphenhydrAMINE HCL 25 MG CAPSULE ONE (23:41)
[2023-11-02] MEDS: IBUPROFEN 400 MG TABLET PO ONE (23:49)
[2023-11-02] MEDS: diphenhydrAMINE HCL 25 MG CAPSULE PO ONE (23:49)
[2023-11-02] MEDS: METOCLOPRAMIDE HCL 10 MG TABLET PO ONE (23:49)
== END 2023-11-02 23:49 | disposition home or self-care (01) ==
LOC: ER 23:06
DX: G43.909 Migraine, unspecified, not intractable, without status migrainosus (principal); Z87.442 Personal history of urinary calculi; Z90.710 Acquired absence of both cervix and uterus; Z60.2 Problems related to living alone; Z79.899 Other long term (current) drug therapy
CPT/HCPCS: 99284; Q0163; J8597

== ENCOUNTER 2023-12-03 07:51 | Emergency (ER) | payer BC ==
[~2023-12-03] VITALS: Ht 154.9 cm; Wt 115.2 kg
[~2023-12-03 07:51] MED LIST changes: +METO-295 PO
[2023-12-03] MEDS ORDERED: BUTA1CAP46 PO (08:23)
[2023-12-03] MEDS ORDERED: diphenhydrAMINE HCL 50 MG/ML VIAL ONE (08:37)
[2023-12-03] MEDS ORDERED: PROCHLORPERAZINE EDISYLATE 10 MG/2 ML VIAL ONE (08:38)
[2023-12-03] MEDS ORDERED: KETOROLAC TROMETHAMINE 15 MG/ML VIAL ONE (08:38)
[2023-12-03] MEDS: IV NS 0.9% 1,000 ML BAG IV ONE (08:48)
[2023-12-03] MEDS: diphenhydrAMINE HCL 50 MG/ML VIAL IV ONE (08:49)
[2023-12-03] MEDS: KETOROLAC TROMETHAMINE 15 MG/ML VIAL IV ONE (08:54)
[2023-12-03] MEDS: PROCHLORPERAZINE EDISYLATE 10 MG/2 ML VIAL IVP STA (08:55)
[2023-12-03 10:01] VITALS: BP 109/76; TEMP 98.2; O2SAT 100
== END 2023-12-03 10:01 | disposition home or self-care (01) ==
LOC: ER 07:53
DX: G43.909 Migraine, unspecified, not intractable, without status migrainosus (principal); Z98.890 Other specified postprocedural states; Z79.899 Other long term (current) drug therapy; Z88.1 Allergy status to other antibiotic agents
CPT/HCPCS: 99284; 96374; 96375; 96361; J0780; J1200; J7030; J1885

== ENCOUNTER 2024-01-23 11:36 | Emergency (ER) | payer BC ==
[~2024-01-23] VITALS: Ht 154.9 cm; Wt 115.7 kg
[~2024-01-23 11:36] MED LIST changes: +BUTA1CAP46 PO
[2024-01-23 12:20] LABS: BASOPHILS % (AUTO) 0.2 % (0.0-2.0); EOSINOPHILS # (AUTO) 0.1 K/uL (0.0-0.7); EOSINOPHILS % (AUTO) 0.8 % (0.0-6.0); HEMATOCRIT 36 % (33-45); HEMOGLOBIN 11.7 g/dL (11.5-14.8); LYMPHOCYTES # (AUTO) 0.9 K/uL (0.8-4.8); LYMPHOCYTES % (AUTO) 10.7 % (20.0-44.0); MEAN CORPUSCULAR HEMOGLOBIN 25 PG (26.0-33.0); MEAN CORPUSCULAR HGB CONC 33 g/dl (31.0-36.0); MEAN CORPUSCULAR VOLUME 77 fL (82-100); MONOCYTES # (AUTO) 0.4 K/uL (0.1-1.30); NEUTROPHILS # (AUTO) 6.7 K/uL (1.8-8.9); NEUTROPHILS % (AUTO) 83.3 % (43.0-81.0); PLATELET COUNT (AUTO) 287 K/uL (150-450); RED CELL DISTRIBUTION WIDTH 17.3 % (11.5-15.0)
[2024-01-23 12:23] LABS: PREGNANCY TEST URINE QUAL NEGATIVE (NEGATIVE)
[2024-01-23 12:24] LABS: APPEARANCE,URINE TURBID (CLEAR); BILIRUBIN,URINE NEGATIVE (NEGATIVE); BLOOD, URINE NEGATIVE Ery/uL (NEGATIVE); COLOR,URINE YELLOW (YELLOW); KETONES,URINE NEGATIVE (NEGATIVE); LEUKOCYTE ESTERASE ,URINE NEGATIVE (NEGATIVE); NITRITE, URINE NEGATIVE (NEGATIVE); PROTEIN,URINE TRACE mg/dl (NEGATIVE); UGLUCOSE NEGATIVE (NEGATIVE)
[2024-01-23] MEDS ORDERED: ONDA4TAB11 PO (12:27)
[2024-01-23] MEDS ORDERED: DICY10CA37 PO (12:27)
[2024-01-23] MEDS ORDERED: ONDANSETRON HCL/PF 4 MG/2 ML VIAL ONE (12:29)
[2024-01-23] MEDS ORDERED: DICYCLOMINE HCL 10 MG CAPSULE PO ONE (12:30)
[2024-01-23 12:32] LABS: CALCIUM, SERUM 8.1 mg/dL (8.5-10.1); CREATININE 0.6 mg/dL (0.6-1.3); POTASSIUM 3.7 mmol/L (3.5-5.1)
[2024-01-23 12:39] LABS: ALBUMIN 2.9 g/dL (3.4-5.0); BILIRUBIN,DIRECT 0.2 mg/dL (0.0-0.2); BILIRUBIN,TOTAL 0.8 mg/dL (0.2-1.0); TOTAL PROTEIN, SERUM 6.7 g/dL (6.4-8.2)
[2024-01-23 12:39] LABS: ADD URINE CULTURE NO; BACTERIA,URINE Rare /HPF (None Seen); RBC,URINE 0-2 /HPF (0-2); SQUAMOUS EPITHELIAL CELL,UR Moderate /HPF (None Seen)
[2024-01-23] MEDS: ONDANSETRON HCL/PF 4 MG/2 ML VIAL IVP ONE (12:40)
[2024-01-23] MEDS: DICYCLOMINE HCL 10 MG CAPSULE PO ONE (12:43)
[2024-01-23] MEDS: IV NS 0.9% 1,000 ML BAG IV ONE (12:44)
[2024-01-29 23:30] VITALS: BP 116/59; TEMP 97.9; O2SAT 99
== END 2024-01-23 14:08 | disposition home or self-care (01) ==
LOC: ER 12:20
DX: A05.9 Bacterial foodborne intoxication, unspecified (principal); K52.9 Noninfective gastroenteritis and colitis, unspecified; G43.909 Migraine, unspecified, not intractable, without status migrainosus; R10.2 Pelvic and perineal pain; Z90.49 Acquired absence of other specified parts of digestive tract; Z79.51 Long term (current) use of inhaled steroids; Z79.1 Long term (current) use of non-steroidal anti-inflammatories (NSAID); Z79.52 Long term (current) use of systemic steroids; Z79.899 Other long term (current) drug therapy; Z88.1 Allergy status to other antibiotic agents
CPT/HCPCS: 99283; 96374; 96361; 85025; 80048; 83690; 80076; 84703; 81001; 36415; J2405; J7030

== ENCOUNTER 2024-05-14 20:43 | Emergency (ER) | payer BC ==
[~2024-05-14] VITALS: Ht 154.9 cm; Wt 117.9 kg
[~2024-05-14 20:43] MED LIST changes: +DICY10CA37 PO; +ONDA4TAB11 PO
[2024-05-14 22:02] LABS: BASOPHILS % (AUTO) 0.4 % (0.0-2.0); EOSINOPHILS # (AUTO) 0.1 K/uL (0.0-0.7); HEMATOCRIT 37 % (33-45); HEMOGLOBIN 12.1 g/dL (11.5-14.8); LYMPHOCYTES # (AUTO) 2.7 K/uL (0.8-4.8); LYMPHOCYTES % (AUTO) 29.7 % (20.0-44.0); MEAN CORPUSCULAR HEMOGLOBIN 26 PG (26.0-33.0); MEAN CORPUSCULAR HGB CONC 33 g/dl (31.0-36.0); MEAN CORPUSCULAR VOLUME 79 fL (82-100); MONOCYTES # (AUTO) 0.5 K/uL (0.1-1.30); NEUTROPHILS # (AUTO) 5.8 K/uL (1.8-8.9); NEUTROPHILS % (AUTO) 62.9 % (43.0-81.0); PLATELET COUNT (AUTO) 315 K/uL (150-450); RED BLOOD CELL COUNT(AUTO) 4.68 MIL/uL (4.0-5.2); RED CELL DISTRIBUTION WIDTH 17.1 % (11.5-15.0); WHITE BLOOD COUNT (AUTO) 9.2 K/uL (4.3-11.0)
[2024-05-14 22:08] LABS: CALCIUM, SERUM 8.6 mg/dL (8.5-10.1)
[2024-05-14 23:02] VITALS: BP 132/74; TEMP 98.1; O2SAT 99
== END 2024-05-14 23:03 | disposition home or self-care (01) ==
LOC: ER 20:59
DX: J06.9 Acute upper respiratory infection, unspecified (principal); G43.909 Migraine, unspecified, not intractable, without status migrainosus; Z87.440 Personal history of urinary (tract) infections; Z79.52 Long term (current) use of systemic steroids; Z88.1 Allergy status to other antibiotic agents; Z90.710 Acquired absence of both cervix and uterus; Z87.09 Personal history of other diseases of the respiratory system; Z20.822 Contact with and (suspected) exposure to COVID-19
CPT/HCPCS: 36415; 80048-TC; 85025-TC

== ENCOUNTER 2024-06-24 19:51 | Emergency (ER) | payer OTHER, BC ==
[~2024-06-24] VITALS: Ht 154.9 cm; Wt 115.7 kg
[2024-06-24 21:26] VITALS: BP 162/88; TEMP 98.7; O2SAT 99
== END 2024-06-24 22:29 | disposition home or self-care (01) ==
LOC: ER 19:52
DX: J06.9 Acute upper respiratory infection, unspecified (principal); G43.909 Migraine, unspecified, not intractable, without status migrainosus; Z79.52 Long term (current) use of systemic steroids; Z87.440 Personal history of urinary (tract) infections; Z88.1 Allergy status to other antibiotic agents; Z90.710 Acquired absence of both cervix and uterus; Z20.822 Contact with and (suspected) exposure to COVID-19

== ENCOUNTER 2024-08-21 17:10 | Emergency (ER) | payer BC, OTHER ==
[~2024-08-21] VITALS: Ht 154.9 cm; Wt 113.4 kg
[2024-08-21 17:24] VITALS: BP 121/87; TEMP 98
[2024-08-21 17:52] VITALS: O2SAT 99
== END 2024-08-21 17:53 | disposition home or self-care (01) ==
LOC: ER 17:47
DX: M25.532 Pain in left wrist (principal); M54.9 Dorsalgia, unspecified; R07.81 Pleurodynia; Z79.52 Long term (current) use of systemic steroids; Z87.440 Personal history of urinary (tract) infections; Z88.1 Allergy status to other antibiotic agents; Z90.710 Acquired absence of both cervix and uterus; Z86.69 Personal history of other diseases of the nervous system and sense organs; Z87.09 Personal history of other diseases of the respiratory system; V43.62XA Car passenger injured in collision with other type car in traffic accident, initial encounter; Y93.89 Activity, other specified; Y92.488 Other paved roadways as the place of occurrence of the external cause; Y99.8 Other external cause status

== ENCOUNTER 2025-06-02 19:49 | Emergency (ER) | payer BC, OTHER ==
[~2025-06-02] VITALS: Ht 157.5 cm; Wt 113.4 kg
[2025-06-02] MEDS ORDERED: GUAI5SYR PO (20:17)
[2025-06-02] MEDS ORDERED: ONDA4TAB5 PO (20:17)
[2025-06-02 20:26] VITALS: BP 166/84; TEMP 97.6; O2SAT 95
== END 2025-06-02 20:28 | disposition home or self-care (01) ==
LOC: ER 19:54
DX: R05.9 Cough, unspecified (principal); R11.0 Nausea; R53.81 Other malaise; Z79.52 Long term (current) use of systemic steroids; Z87.440 Personal history of urinary (tract) infections; Z87.442 Personal history of urinary calculi; Z88.1 Allergy status to other antibiotic agents; Z90.710 Acquired absence of both cervix and uterus